=== PATIENT | male | born 1990 | race Caucasian/White ===

== ENCOUNTER 2017-01-28 06:17 | Day surgery (SDC) | payer OTHER ==
[~2017-01-28] VITALS: Ht 180.3 cm; Wt 108.6 kg
[2017-01-28] VITALS (14 sets, daily range): BP systolic 100–119; BP diastolic 63–85; PULSE 66–89; RESP 11–24; Ht 180.3 cm; Wt 108.6 kg
[2017-01-28] MEDS ORDERED: NAPR500T8 PO (06:40)
[2017-01-28] MEDS ORDERED: BUPIVACAINE 0.5%/EPI (SDV) 30 ML INJ ONE (07:26)
[2017-01-28] MEDS ORDERED: POLYMYXIN/BACITRACIN 1L IRRIG ONE (07:26)
[2017-01-28] MEDS ORDERED: ROPIVACAINE 0.5 % 30 ML VIAL ONE ×2 (07:26→08:14)
[2017-01-28] MEDS ORDERED: PROPOFOL 20 ML ONE (08:10)
[2017-01-28] MEDS ORDERED: NEOSTIGMINE 3 MG/3 ML SYRINGE ONE (08:10)
[2017-01-28] MEDS ORDERED: DEXAMETHASONE 4 MG/ML 1 ML INJ ONE (08:11)
[2017-01-28] MEDS ORDERED: ROCURONIUM 50 MG INJ ONE (08:11)
[2017-01-28] MEDS ORDERED: FENTAnyl 50 MCG/ML VIAL ONE ×2 (08:11→10:56)
[2017-01-28] MEDS ORDERED: MIDAZOLAM 1 MG/ML 2 ML INJ ONE (08:11)
[2017-01-28] MEDS ORDERED: ONDANSETRON 4 MG INJ ONE (08:11)
[2017-01-28] MEDS ORDERED: CEFAZOLIN 1 GM INJ ONE (08:11)
[2017-01-28] MEDS ORDERED: GLYCOPYRROLATE 0.4 MG INJ ONE (08:11)
--- NOTE | 2017-01-28 08:18 | HPN ---
Date/Time of Note Date/Time of Note DATE: 01/28/17 TIME: 08:18 Interval H&P Admission Note Pt. seen H&P reviewed: No system changes MAXIME SEGUNDO MD Jan 28, 2017 08:18
[2017-01-28] MEDS ORDERED: SUGAMMADEX SODIUM 200 MG/2 ML VIAL IV ONE (10:15)
[2017-01-28] MEDS ORDERED: METOCLOPRAMIDE 10 MG INJ ONE (10:19)
[2017-01-28] MEDS ORDERED: ONDANSETRON 4 MG INJ IV PRN (11:00)
[2017-01-28] MEDS ORDERED: morphine 2 MG INJ IV PRN (11:00)
[2017-01-28] MEDS ORDERED: FENTAnyl 50 MCG/ML VIAL IV PRN (11:00)
[2017-01-28] MEDS ORDERED: HYDROCODONE/APAP (5/325) TAB PO PRN ×2 (11:00)
--- NOTE | 2017-01-28 11:01 | OPR ---
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 Chang Ghosh is a 26-year-old male who sustained injury to his right knee. He was diagnosed as having a lateral meniscus tear along with an anterior cruciate ligament tear. He now presents for the above this procedure. Risks and benefits were discussed. Risks including but not limited to infection bleeding blood clots hardware failure hardware prominence re-tear stiffness along with other medical anesthetic and surgical complications were discussed. Informed consent was obtained Procedure Description Patient's correct extremity was identified in the preoperative area is brought back the operating room where he had abductor canal block he had general internal anesthesia preoperative antibiotics were administered right lower extremity was prepped and draped in central manner timeout was performed Esmarch was used to exsanguinate the extremity examined anesthesia revealed a positive pivot shift and a grade 2B Layne's and anterior drawer test the graft which is an allograft was opened and prepared on the back table and stretched nearly 15 pounds of tension. Then made standard medial lateral portal incisions did a diagnostic arthroscopy significant finding the lateral compartment was the meniscus was torn at the red white junction along the posterior horn Arthrex meniscal repair set was used to repair the meniscus I used 2 anchors to repair the meniscus upon careful probing the meniscus could not be subluxed into the joint I did debride the posterior part of the tear to roughen up the surface prior to repair this point in the notch the ACL did not have a lateral attachment I debrided the notch raise the notch posteriorly using a 55 guide from Arthrex and anteromedial incision I made my tibial tunnel followed by 2 mm offset guide made my femoral tunnel at this point the graft was passed over a Beath pin until it was fully seated it was fixed on the femoral side with a 8 x 25 graft by Arthrex interference screw. I then cycled the knee 2010 while applying a posterior drawer maneuver fix the graft on the tibial side the graft a cup retention point evaluation with the scope intra- articularly there was no notching with full extension at this point I elected tourniquet obtain adequate hemostasis the anteromedial incision was closed in layers of deeper tissue with 0 Vicryl. Subcu tissue with 2-0 Vicryl. The skin with running 3-0 Monocryl dry sterile dressings applied patient's foot was warm well perfused at the end of the case. MAXIME SEGUNDO MD Jan 28, 2017 11:01
[2017-01-30] MEDS ORDERED: ASPIRIN (EC) 325 MG TAB PO SCH (09:00)
== END 2017-01-28 13:10 | disposition home or self-care (01) ==
LOC: SDS 06:17
PROVIDERS: ATTEND Specialist
DX: S83.511A Sprain of anterior cruciate ligament of right knee, initial encounter (principal); S83.281A Other tear of lateral meniscus, current injury, right knee, initial encounter; X58.XXXA Exposure to other specified factors, initial encounter; Y93.89 Activity, other specified; Y92.89 Other specified places as the place of occurrence of the external cause; Y99.8 Other external cause status
CPT/HCPCS: 29881; 29888; C1762; J0690; J1100; J2250; J2405; J2795; J3010; Z7512; Z7610; J2710; J2765